=== PATIENT | female | born 1985 | race Caucasian/White ===

== ENCOUNTER 2018-03-20 16:26 | Emergency (ER) | payer OTHER ==
[~2018-03-20] VITALS: Ht 160 cm; Wt 59.0 kg
[2018-03-20] MEDS ORDERED: NORCO 5-325 TA1 EACH PO (18:12)
[2018-03-20 18:34] VITALS: BP 92/56
== END 2018-03-20 18:34 | disposition home or self-care (01) ==
LOC: ER 16:26
PROC: 0RSKXZZ Reposition Left Shoulder Joint, External Approach (ICD-10-PCS; principal; 2018-03-20)
DX: S43.015A Anterior dislocation of left humerus, initial encounter (principal); Z88.1 Allergy status to other antibiotic agents; X50.1XXA Overexertion from prolonged static or awkward postures, initial encounter; Y92.007 Garden or yard of unspecified non-institutional (private) residence as the place of occurrence of the external cause; Y99.0 Civilian activity done for income or pay; Y99.8 Other external cause status